=== PATIENT | female | born 1935 | race Caucasian/White ===

== ENCOUNTER 2018-03-17 08:00 | Day surgery (SDC) | payer MEDICARE ==
[~2018-03-17 08:00] MED LIST: Ciprofloxacin 0.3% OPTH SOLN OD SCH; Flurbiprofen 0.03% Opht SOLN OD SCH; Lactated Ringer's 500 ML IV ONE; Phenylephrine 2.5% Opht Soln OD SCH; Tropicamide 1% Opht SOLUTION OD SCH; acetaZOLAMIDE 500 mg SR Cap PO ONE
[2018-03-17] MEDS ORDERED: Tobramycin/Dexamethasone OPHT OINT ONE (08:25)
[2018-03-17] MEDS ORDERED: Tetracaine 0.5% Ophth (OR ONLY) ONE (08:25)
[2018-03-17] MEDS ORDERED: Carbachol 0.01% IO ONE (08:25)
[2018-03-17] MEDS ORDERED: Povidone Iodine Ophthalmic 5% Soln ONE (08:25)
[2018-03-17] MEDS ORDERED: Hyaluronidase Human, Recombi 150 U/ML VIAL ONE (08:26)
[2018-03-17] MEDS ORDERED: Chondroitin/Hyaluronate Opth Syringe KIT (0.55 ml-0.5 ml) IO ONE (08:26)
[2018-03-17] MEDS ORDERED: Lactated Ringer's 500 ML IV ONE (08:30)
[2018-03-17] MEDS ORDERED: Lidocaine 2% Inj (20ml) INFIL ONE (08:33)
[2018-03-17 08:52] VITALS: RESP 18
[2018-03-17] MEDS ORDERED: Midazolam 2 MG/2 ML VIAL ONE (10:11)
[2018-03-17] MEDS ORDERED: Hyaluronate Sodium 10 mg/ml Ophth Syringe ONE (11:03)
[2018-03-17] MEDS ORDERED: Chondroitin/Hyaluronate 40 mg/ml-30 mg/ml Ophth Syringe (0.5 ml) IO ONE ×2 (11:03→11:05)
[2018-03-17 11:56] VITALS: O2SAT 97
[2018-03-17 11:59] VITALS: TEMP 97
[2018-03-17] MEDS ORDERED: acetaZOLAMIDE 500 mg SR Cap PO ONE (12:04)
[2018-03-17 12:09] VITALS: BP 159/70; PULSE 86
--- NOTE | 2018-03-17 22:10 | OP ---
PROCEDURE DATE: 03/17/2018 PREOPERATIVE DIAGNOSIS: Cataract, right eye. POSTOPERATIVE DIAGNOSIS: Cataract, right eye. OPERATIVE PROCEDURE: Phacoemulsification, right eye, insertion of posterior chamber implant. SURGEON: Roberto Neville MD CO-SURGEON: Philip Corona MD ANESTHESIA: Local with IV sedation. OPERATIVE PROCEDURE: The patient was brought into the operating room, placed in supine position, prepped and draped in the usual fashion for ophthalmic surgery. Lid speculum was inserted, lids and exposing globe. On inspection, there is noted to be hypermature cataract. Side-port incision was made superiorly and inferiorly with a disposable sharp blade. Anterior chamber was filled with Viscoat. Capsulorrhexis was then performed with Utrata forceps. Hydrodissection carried out with balanced salt solution. Nucleus was phacoemulsified. Remaining cortical fragments were removed with a split irrigation aspiration system. At that time, there is noted to be a tear in the posterior capsule. Anterior vitrectomy was then performed. A posterior capsule opening the wound to 6 mm, posterior chamber lens was then inserted into the ciliary sulcus, rotated in the horizontal position. The Viscoat was aspirated at the anterior chamber. The wound was closed with five interrupted 10-0 Prolene suture. Pupil was constricted with Miochol. Topical Betadine, Timoptic, and TobraDex ointment and pressure patch were applied. The patient tolerated the procedure well. Roberto Neville MD
== END 2018-03-17 12:31 | disposition home or self-care (01) ==
LOC: C.SDS 08:00
PROVIDERS: ATTEND Ophthalmology
DX: H25.21 Age-related cataract, morgagnian type, right eye (principal)
CPT/HCPCS: 66984; 82948; J2250; J3010; J3470; J7120

== ENCOUNTER 2018-04-14 07:25 | Day surgery (SDC) | payer MEDICARE ==
[~2018-04-14 07:25] MED LIST changes: -Ciprofloxacin 0.3% OPTH SOLN OD SCH; +Ciprofloxacin 0.3% OPTH SOLN OS SCH; -Flurbiprofen 0.03% Opht SOLN OD SCH; +Flurbiprofen 0.03% Opht SOLN OS SCH; -Phenylephrine 2.5% Opht Soln OD SCH; +Phenylephrine 2.5% Opht Soln OS SCH; -Tropicamide 1% Opht SOLUTION OD SCH; +Tropicamide 1% Opht SOLUTION OS SCH
[2018-04-14] MEDS ORDERED: Carbachol 0.01% IO ONE (07:41)
[2018-04-14] MEDS ORDERED: Povidone Iodine Ophthalmic 5% Soln ONE (07:41)
[2018-04-14] MEDS ORDERED: Hyaluronidase Human, Recombi 150 U/ML VIAL ONE (07:42)
[2018-04-14] MEDS ORDERED: Lidocaine Hydrochloride 5 ML INJ ONE (07:42)
[2018-04-14] MEDS ORDERED: Tetracaine 0.5% Ophth (OR ONLY) ONE (07:42)
[2018-04-14] MEDS ORDERED: Tobramycin/Dexamethasone OPHT OINT ONE (07:42)
[2018-04-14] MEDS ORDERED: Chondroitin/Hyaluronate Opth Syringe KIT (0.55 ml-0.5 ml) IO ONE (07:42)
[2018-04-14] MEDS ORDERED: Lactated Ringer's 1,000 ML IV ONE (08:30)
[2018-04-14] MEDS ORDERED: Midazolam 2 MG/2 ML VIAL ONE (10:51)
[2018-04-14] MEDS ORDERED: Hyaluronate Sodium 10 mg/ml Ophth Syringe ONE (11:18)
[2018-04-14 11:52] VITALS: O2SAT 100
[2018-04-14] MEDS ORDERED: acetaZOLAMIDE 500 mg SR Cap PO ONE (12:15)
[2018-04-14 12:29] VITALS: BP 157/66; PULSE 69; RESP 20; TEMP 97.7
--- NOTE | 2018-04-14 23:22 | OP ---
PROCEDURE DATE: 04/14/2018 PREOPERATIVE DIAGNOSIS: Hypermature cataract, left eye. POSTOPERATIVE DIAGNOSIS: Hypermature cataract, left eye. OPERATIVE PROCEDURE: Phacoemulsification, left eye with utilization of capsular dye. SURGEON: Roberto Neville MD CO-SURGEON: Philip Corona MD TYPE OF ANESTHESIA: Local IV sedation. DESCRIPTION OF PROCEDURE: The patient was brought into the operating room, placed in supine position, prepped and draped in the usual fashion for ophthalmic surgery. Lid speculum was inserted, lids and exposing globe. On inspection, there was noted to be hypermature cataract of the left eye with a 4 mm pupil. Side-port incision was made superiorly and inferiorly with disposable sharp blade. Capsular dye was injected into the anterior chamber. The dye was irrigated out with balanced salt solution. The anterior chamber was then deepened with Viscoat. A near clear corneal incision was made temporally with a 2.4-mm keratome. Capsulorrhexis was performed with Utrata forceps. Hydrodissection carried out with balanced-salt solution. Phacoemulsification was then begun after a fragment toward the posterior capsule. The remainder of the nucleus was then directed through the tear into the vitreous. Anterior vitrectomy was then performed. Anterior chamber was deepened with Provisc. A posterior chamber lens was then inserted over the anterior capsule into the ciliary sulcus and found to be well centered. The pupil was constricted with Miochol. The wound was then hydrated with balanced salt solution. Topical Betadine, Timoptic, and TobraDex ointment were then filled and pressure patch applied. The patient tolerated the procedure well. Roberto Neville MD
== END 2018-04-14 12:40 | disposition home or self-care (01) ==
LOC: C.SDS 07:25
PROVIDERS: ATTEND Ophthalmology
DX: H26.9 Unspecified cataract (principal)
CPT/HCPCS: 66984; 82948; J2250; J3010; J3470; J7120

== ENCOUNTER 2019-04-14 08:16 | Outpatient (CLI) | payer MEDICARE | END 2019-04-14 08:17 | disposition home or self-care (01) | LOC: C.CARD 08:16 | DX: R07.9 Chest pain, unspecified (principal); E11.9 Type 2 diabetes mellitus without complications ==